=== PATIENT | female | born 1985 | race Caucasian/White ===

== ENCOUNTER 2019-10-24 23:09 | Inpatient (IN) | payer BC ==
[~2019-10-24] VITALS: Ht 167.6 cm; Wt 97.0 kg
[2019-10-24 23:23] VITALS: BP 124/76
[2019-10-24] MEDS ORDERED: LACTATED RINGERS 1,000 ML IV SCH ×2 (23:40→23:42)
[2019-10-24] MEDS ORDERED: D5%-LACTATED RINGERS 1,000 ML IV SCH (23:40)
[2019-10-24] MEDS ORDERED: OXYTOCIN 30U/ 0.9% NaCL 500ML 500 ML IV ONE (23:40)
[2019-10-24] MEDS ORDERED: FENTANYL/BUPIV./NS/PF 250 ML EPIDCONT SCH (23:42)
[2019-10-25] MEDS ORDERED: METOCLOPRAMIDE 5 MG/ML, 2ML IVPush PRN
[2019-10-25] MEDS ORDERED: SODIUM CITRATE/CITRIC ACID 30 ML UDC PO PRN
[2019-10-25] MEDS ORDERED: TERBUTALINE 1 MG/ML, 1ML SQ PRN
[2019-10-25] MEDS ORDERED: LACTATED RINGERS 1,000 ML IVBOLUS PRN
[2019-10-25] MEDS ORDERED: FENTANYL PF 100 MCG/2ML IVPush PRN
[2019-10-25] MEDS ORDERED: ONDANSETRON 2MG/ML, 2ML IVPush PRN
[2019-10-25] MEDS ORDERED: TERBUTALINE 1 MG/ML, 1ML IVPush PRN
[2019-10-25] MEDS ORDERED: ALUMINUM/MAG/SIMETHICONE 30 ML UDC PO PRN
[2019-10-25] MEDS ORDERED: SODIUM CHLORIDE FLUSH 10ML SYR IVF PRN
[2019-10-25] MEDS ORDERED: NEWBORN KIT ONE (00:08)
[2019-10-25] MEDS ORDERED: OXYTOCIN 30U/ 0.9% NaCL 500ML 500 ML ONE (00:08)
[2019-10-25 00:18] LABS: BASOPHILS # (AUTO) 0.04 x10^3/uL (0-0.1); BASOPHILS % (AUTO) 0 % (0-1); EOSINOPHILS # (AUTO) 0.06 x10^3/uL (0-0.4); EOSINOPHILS % (AUTO) 1 % (1-7); LYMPHOCYTES # (AUTO) 2.16 x10^3/uL (1-3.4); LYMPHOCYTES % (AUTO) 20 % (22-44); MD NO; MEAN CORPUSCULAR HEMOGLOBIN 31.9 pg (27.0-34.8); MEAN CORPUSCULAR HGB CONC 33.8 g/dL (32.4-35.8); MEAN CORPUSCULAR VOLUME 94.2 fL (80-100); MEAN PLATELET VOLUME 10.1 fL (7.4-10.4); MONOCYTES # (AUTO) 1.24 x10^3/uL (0.2-0.8); MONOCYTES % (AUTO) 11 % (2-9); NEUTROPHILS # (AUTO) 7.33 x10^3/uL (1.8-6.8); NEUTROPHILS % (AUTO) 68 % (42-75); PLATELET COUNT 173 x10^3/uL (130-400); RED BLOOD COUNT 3.95 x10^6/uL (3.82-5.3); RED CELL DISTRIBUTION WIDTH 13.6 % (9.6-15.2)
[2019-10-25] MEDS ORDERED: FENTANYL/BUPIV./NS/PF 250 ML EPIDCONT SCH (01:08)
[2019-10-25] MEDS ORDERED: EPHEDRINE 50 MG/ML, 1ML IVPush PRN ×3 (01:30→19:30)
[2019-10-25 02:19] VITALS: BP 112/59
[2019-10-25] MEDS ORDERED: MISOPROSTOL 200 MCG TABLET ONE (02:56)
[2019-10-25] MEDS ORDERED: BUPIVACAINE 0.25% ONE (03:23)
[2019-10-25 13:39] LABS: ALBUMIN 2.4 g/dL (3.4-5.0); ANION GAP 11 mmol/L (5-15); CHLORIDE 110 mmol/L (98-107)
[2019-10-25 13:42] LABS: ALANINE AMINOTRANSFERASE 15 U/L (12-78); ALKALINE PHOSPHATASE 185 U/L (45-117); BILIRUBIN,TOTAL 0.4 mg/dL (0.2-1.0); CREATININE 0.79 mg/dL (0.55-1.02); TOTAL PROTEIN 5.9 g/dL (6.4-8.2)
[2019-10-25 13:48] LABS: MICROSCOPIC INDICATED
[2019-10-25 13:57] LABS: TOTAL PROTEIN,URINE RANDOM 14 mg/dL (0-12)
[2019-10-25 14:00] LABS: CREATININE,URINE RANDOM < 13.00 mg/dL; PROTEIN/CREATININE RATIO,URINE 1077 (0-200)
[2019-10-25] MEDS ORDERED: METOCLOPRAMIDE 5 MG/ML, 2ML ONE (14:53)
[2019-10-25] MEDS ORDERED: SODIUM CITRATE/CITRIC ACID 30 ML UDC ONE (14:54)
[2019-10-25] MEDS ORDERED: AZITHROMYCIN 500 MG in SODIUM CHLORIDE 0.9% 250 ML IV ONE (17:00)
[2019-10-25] MEDS ORDERED: CEFAZOLIN 1,000 MG ONE (17:34)
[2019-10-25] MEDS ORDERED: OXYTOCIN 10 UNITS/ML, 1ML ONE (17:34)
[2019-10-25] MEDS: OXYTOCIN 30U/ 0.9% NaCL 500ML 500 ML IV SCH (17:37)
[2019-10-25] MEDS ORDERED: SODIUM BICARBONATE 1 MEQ/ML, 50ML VIAL ONE (17:40)
[2019-10-25] MEDS ORDERED: LIDOCAINE-MPF 2% ,5ML ONE ×4 (17:40)
[2019-10-25] MEDS ORDERED: DIPH,PERTUSS(ACELL),TET VAC/PF NC IM-VACC PRN (18:00)
[2019-10-25] MEDS ORDERED: MISOPROSTOL 200 MCG TABLET SL PRN (18:00)
[2019-10-25] MEDS ORDERED: ONDANSETRON 2MG/ML, 2ML IV PRN ×2 (18:00→19:30)
[2019-10-25] MEDS ORDERED: METOCLOPRAMIDE 5 MG/ML, 2ML IV PRN (18:00)
[2019-10-25] MEDS: LACTATED RINGERS 1,000 ML IV SCH ×2 (18:00→19:44)
[2019-10-25] MEDS ORDERED: CALCIUM CARBONATE 500 MG TAB.CHEW PO PRN ×2 (18:00)
[2019-10-25] MEDS ORDERED: morphine SULFATE 10 MG/ML, 1ML IVPush PRN (18:00)
[2019-10-25] MEDS ORDERED: ONDANSETRON 2MG/ML, 2ML ONE (18:28)
[2019-10-25] MEDS ORDERED: KETOROLAC 30 MG/1 ML ONE (18:32)
[2019-10-25] MEDS: KETOROLAC 30 MG/1 ML IV SCH (18:45)
[2019-10-25] MEDS ORDERED: LABETALOL 5MG/ML, 20ML IV PRN (19:30)
[2019-10-25] MEDS ORDERED: MORPHINE SULFATE 4 MG/ML, 1ML IVPush PRN (19:30)
[2019-10-25] MEDS ORDERED: DEXAMETHASONE 4 MG/ML, 1ML IV PRN (19:30)
[2019-10-25] MEDS ORDERED: hydrALAzine 20 MG/ML, 1ML IV PRN (19:30)
[2019-10-25] MEDS ORDERED: PROMETHAZINE 25 MG/ML, 1ML IV PRN (19:30)
[2019-10-25] MEDS ORDERED: FENTANYL PF 100 MCG/2ML IV PRN ×2 (19:30)
[2019-10-25] MEDS ORDERED: OXYcodone 5 MG/5 ML ORAL.SOL UDC ONE ×2 (19:34→20:09)
[2019-10-25] MEDS: OXYcodone 5 MG/5 ML ORAL.SOL UDC PO PRN ×2 (19:41→20:10)
[2019-10-25 21:00] VITALS: BP 136/82
[2019-10-25] MEDS: DOCUSATE 100 MG CAPSULE PO SCH (21:00)
[2019-10-26] MEDS: OXYcodone IR 5MG TABLET PO PRN ×6 (00:14→23:01)
[2019-10-26] MEDS: DOCUSATE 100 MG CAPSULE PO SCH ×3 (00:15→23:02)
[2019-10-26] MEDS: KETOROLAC 30 MG/1 ML IV SCH ×3 (00:53→12:30)
[2019-10-26 01:00] VITALS: BP 111/56
[2019-10-26] MEDS: LACTATED RINGERS 1,000 ML IV SCH ×2 (02:00→04:00)
[2019-10-26 02:15] LABS: BASOPHILS # (AUTO) 0.06 x10^3/uL (0-0.1); BASOPHILS % (AUTO) 0 % (0-1); EOSINOPHILS # (AUTO) 0.04 x10^3/uL (0-0.4); EOSINOPHILS % (AUTO) 0 % (1-7); LYMPHOCYTES # (AUTO) 1.92 x10^3/uL (1-3.4); LYMPHOCYTES % (AUTO) 11 % (22-44); MD NO; MEAN CORPUSCULAR HEMOGLOBIN 32.1 pg (27.0-34.8); MEAN CORPUSCULAR HGB CONC 33.6 g/dL (32.4-35.8); MEAN CORPUSCULAR VOLUME 95.3 fL (80-100); MEAN PLATELET VOLUME 9.4 fL (7.4-10.4); MONOCYTES # (AUTO) 1.38 x10^3/uL (0.2-0.8); MONOCYTES % (AUTO) 8 % (2-9); NEUTROPHILS # (AUTO) 13.81 x10^3/uL (1.8-6.8); NEUTROPHILS % (AUTO) 80 % (42-75); PLATELET COUNT 145 x10^3/uL (130-400); RED BLOOD COUNT 3.29 x10^6/uL (3.82-5.3); RED CELL DISTRIBUTION WIDTH 13.6 % (9.6-15.2)
[2019-10-26] MEDS: OXYTOCIN 30U/ 0.9% NaCL 500ML 500 ML IV SCH (03:37)
[2019-10-26 04:30] VITALS: BP 105/69
[2019-10-26 07:05] VITALS: BP 105/65
[2019-10-26] MEDS: PRENATAL VIT/IRON/FA 1 EACH TABLET PO SCH (09:28)
[2019-10-26] MEDS: SIMETHICONE 80 MG CHEW TAB PO PRN ×2 (09:46→23:02)
[2019-10-26 12:00] VITALS: BP 130/83
[2019-10-26] MEDS: ACETAMINOPHEN 325 MG TABLET PO PRN (18:14)
[2019-10-26] MEDS: IBUPROFEN 800 MG TABLET PO PRN (18:14)
[2019-10-26 19:05] VITALS: BP 118/77
[2019-10-27] MEDS: ACETAMINOPHEN 325 MG TABLET PO PRN ×5 (03:37→21:55)
[2019-10-27] MEDS: IBUPROFEN 800 MG TABLET PO PRN ×3 (03:37→21:55)
[2019-10-27] MEDS: OXYcodone IR 5MG TABLET PO PRN ×5 (03:38→21:55)
[2019-10-27 07:33] LABS: BASOPHILS # (AUTO) 0.01 x10^3/uL (0-0.1); BASOPHILS % (AUTO) 0 % (0-1); EOSINOPHILS # (AUTO) 0.12 x10^3/uL (0-0.4); EOSINOPHILS % (AUTO) 1 % (1-7); LYMPHOCYTES # (AUTO) 1.92 x10^3/uL (1-3.4); LYMPHOCYTES % (AUTO) 17 % (22-44); MD NO; MEAN CORPUSCULAR HEMOGLOBIN 32.3 pg (27.0-34.8); MEAN CORPUSCULAR HGB CONC 33.7 g/dL (32.4-35.8); MEAN CORPUSCULAR VOLUME 95.7 fL (80-100); MEAN PLATELET VOLUME 9.2 fL (7.4-10.4); MONOCYTES # (AUTO) 0.81 x10^3/uL (0.2-0.8); MONOCYTES % (AUTO) 7 % (2-9); NEUTROPHILS # (AUTO) 8.58 x10^3/uL (1.8-6.8); NEUTROPHILS % (AUTO) 75 % (42-75); PLATELET COUNT 176 x10^3/uL (130-400); RED CELL DISTRIBUTION WIDTH 13.9 % (9.6-15.2)
[2019-10-27 08:15] VITALS: BP 115/77
[2019-10-27] MEDS: SIMETHICONE 80 MG CHEW TAB PO PRN ×3 (08:17→23:40)
[2019-10-27] MEDS: PRENATAL VIT/IRON/FA 1 EACH TABLET PO SCH (08:18)
[2019-10-27] MEDS: DOCUSATE 100 MG CAPSULE PO SCH ×2 (08:18→21:56)
[2019-10-27 19:15] VITALS: BP 116/77
[2019-10-28] MEDS: ACETAMINOPHEN 325 MG TABLET PO PRN ×5 (03:08→22:51)
[2019-10-28] MEDS: OXYcodone IR 5MG TABLET PO PRN ×5 (03:08→22:52)
[2019-10-28] MEDS: IBUPROFEN 800 MG TABLET PO PRN ×3 (06:03→22:51)
[2019-10-28] MEDS: PRENATAL VIT/IRON/FA 1 EACH TABLET PO SCH (07:13)
[2019-10-28] MEDS: DOCUSATE 100 MG CAPSULE PO SCH (07:13)
[2019-10-28 07:21] VITALS: BP 121/79
[2019-10-28] MEDS: SIMETHICONE 80 MG CHEW TAB PO PRN (14:00)
[2019-10-28 20:20] VITALS: BP 116/74
[2019-10-29] MEDS: OXYcodone IR 5MG TABLET PO PRN ×2 (04:10→09:27)
[2019-10-29] MEDS: IBUPROFEN 800 MG TABLET PO PRN ×2 (04:55→06:37)
[2019-10-29] MEDS: ACETAMINOPHEN 325 MG TABLET PO PRN ×2 (04:56→09:25)
[2019-10-29 08:59] VITALS: BP 130/77
[2019-10-29] MEDS: PRENATAL VIT/IRON/FA 1 EACH TABLET PO SCH (09:25)
[2019-10-29] MEDS: DOCUSATE 100 MG CAPSULE PO SCH (09:25)
[2019-10-29] MEDS: SIMETHICONE 80 MG CHEW TAB PO PRN (09:26)
[2019-10-29] MEDS ORDERED: IBUP-1222 PO (11:19)
[2019-10-29] MEDS ORDERED: PREN1TAB98 PO (11:20)
[2019-10-29] MEDS ORDERED: OXYC-302 PO (11:20)
[2019-10-29] MEDS ORDERED: DOCU100C33 PO (11:20)
[2019-10-29 12:18] LABS: MICROSCOPIC AUTO
== END 2019-10-29 13:00 | disposition home or self-care (01) | DRG 787 ==
LOC: LDOP 23:09 → LDIP 23:47 → 2NW 10-25 20:24
PROVIDERS: ADMIT Obstetrics & Gynecology; ATTEND Obstetrics & Gynecology
PROC: 10D00Z1 Extraction of Products of Conception, Low, Open Approach (ICD-10-PCS; principal; 2019-10-25)
PROC: 0T9B70Z Drainage of Bladder with Drainage Device, Via Natural or Artificial Opening (ICD-10-PCS; 2019-10-25)
DX: O42.92 Full-term premature rupture of membranes, unspecified as to length of time between rupture and onset of labor (principal); O63.9 Long labor, unspecified; O13.4 Gestational [pregnancy-induced] hypertension without significant proteinuria, complicating childbirth; O62.0 Primary inadequate contractions; O34.43 Maternal care for other abnormalities of cervix, third trimester; N88.8 Other specified noninflammatory disorders of cervix uteri; O69.81X0 Labor and delivery complicated by cord around neck, without compression, not applicable or unspecified; Z3A.38 38 weeks gestation of pregnancy; Z37.0 Single live birth; Z87.891 Personal history of nicotine dependence; Z91.040 Latex allergy status; Z90.49 Acquired absence of other specified parts of digestive tract
CPT/HCPCS: 36415; J3490; 80053; 81001; 82570; 84156; 84550; 85025; 86592; 86850; 86900; 87086; 89060; G0378; J0456; J0690; J1885; J2405; J2590; J2765; J3010; J7050; J7120; Q0114